=== PATIENT | male | born 1975 | race Caucasian/White ===

== ENCOUNTER 2018-02-28 02:16 | Observation (INO) | payer BC ==
[~2018-02-28] VITALS: Ht 190.5 cm; Wt 211.8 kg
[~2018-02-28 02:16] MED LIST: ACCUNEB SO1.25 MG/1 INH; ALPRAZOLAM 0.0.25 MG PO; AMLODIPINE BESY10 MG PO; CELEXA20 MG PO; CLEOCIN HCL150 MG PO; CLONIDINE0.1 PO; COZAAR 50 MG TA50 M2 PO; FLEXERIL PO; IBUPROFEN 800800 M1 PO; JARDIANCE25 MG PO; LISINOPRIL2.5 MG; METFORMIN HCL500 MG PO; METOPROLOL SUC100 MG PO; MOBIC15 MG PO; NORCO 5-325 TA1 EACH PO; OXYCODON-ACETA1 EAC1 PO; SIMETHICON CHEW80 M1 PO; XANAX 0.25 MG0.25 MG PO; [UNRECOGNIZED DRUG - OTHER] PO
[2018-02-28 02:19] VITALS: BP 178/104
[2018-02-28 02:39] LABS: ABSOLUTE BASOPHILS 0.1 thou/uL (0.0-0.2); ABSOLUTE EOSINOPHILS 0.2 thou/uL (0.0-0.7); ABSOLUTE LYMPHOCYTES 2.5 thou/uL (0.8-5.3); ABSOLUTE MONOCYTES 0.6 thou/uL (0.0-1.2); ABSOLUTE NEUTROPHILS 6.8 thou/uL (1.6-8.1); HEMATOCRIT 43.7 % (42.0-52.0); LYMPHOCYTES 24.5 %; MCH 26.8 pg (26.0-34.0); MCHC 34.2 g/dL (28.0-37.0); MCV 78.4 fL (80.0-100.0); MONOCYTES 5.6 %; MPV 8.9 fl. (7.2-11.1); NUCLEATED RBCS 0 /100WBC; PLATELET COUNT* 192 thou/uL (150-400); POLYS 66.9 %; RBC 5.57 mil/uL (4.50-6.00); RDW-CV 15.7 % (10.5-14.5); WBC 10.2 thou/uL (4.0-11.0)
[2018-02-28 02:51] LABS: ANION GAP 8 mmol/L (7-16); BUN 17 mg/dL (7-18); CALCIUM 8.8 mg/dL (8.5-10.1); CHLORIDE 100 mmol/L (98-107); CO2 30 mmol/L (21-32); CREATININE 0.9 mg/dL (0.6-1.3); GLUCOSE 130 mg/dL (70-99); SODIUM 138 mmol/L (136-145)
[2018-02-28 02:52] LABS: POTASSIUM 2.5 mmol/L (3.5-5.1)
[2018-02-28 02:53] LABS: INR 1.1; PROTIME 10.7 Seconds (9.20-11.50)
[2018-02-28 03:01] LABS: ALBUMIN 3.9 g/dL (3.4-5.0); ALKALINE PHOSPHATASE 77 U/L (46-116); NT-PRO BRAIN NAT PEPTIDE 30 pg/mL (<300); SGOT 21 U/L (15-37); SGPT 32 U/L (30-65); TOTAL BILIRUBIN 0.9 mg/dL (<0.1-1.0); TOTAL PROTEIN 7.9 g/dL (6.4-8.2); TROPONIN-I LEVEL <0.06 ng/mL (<0.06)
[2018-02-28 03:11] LABS: URINE BILIRUBIN NEGATIVE (Negative); URINE BLOOD NEGATIVE (Negative); URINE CLARITY CLEAR; URINE COLOR YELLOW; URINE GLUCOSE-RANDOM 3+ (Negative); URINE KETONES NEGATIVE (Negative); URINE LEUKOCYTES-REFLEX NEGATIVE (Negative); URINE NITRITE-REFLEX NEGATIVE (Negative); URINE PROTEIN NEGATIVE (Negative); URINE UROBILINOGEN 0.2 E.U./dl (0.2-1.0)
[2018-02-28 04:45] VITALS: BP 147/86
[2018-02-28] MEDS ORDERED: VENTOLIN HFA 1818 GM INH (05:51)
[2018-02-28] MEDS ORDERED: CELEXA20 MG PO (05:52)
[2018-02-28] MEDS ORDERED: ATORVASTATIN CA40 MG PO (05:55)
[2018-02-28 05:57] VITALS: BP 136/79
--- NOTE | 2018-02-28 06:30 | NUR ---
ADMITTED FROM ER, NO DISTRESS NOTED. DENIES SOB OR CP. TELEMETRY APPLIED SHOWING SR. SEE ADMISSION ASSESSMENT AND HX.
[2018-02-28 09:43] LABS: MAGNESIUM 2.3 mg/dL (1.8-2.4); POTASSIUM 3.1 mmol/L (3.5-5.1); TROPONIN-I LEVEL <0.06 ng/mL (<0.06)
[2018-02-28] MEDS ORDERED: ASPIR 8181 MG PO (09:55)
[2018-02-28 11:22] VITALS: BP 136/79
--- NOTE | 2018-02-28 12:28 | NUR ---
ASSESSMENT COMPLETED REFER TO COMPUTER CHARTING. THERAPEUTIC RECREATION SPECIALIST TRACKING SR. PATIENT REPORTING NO PAIN OR NAUSEA. PATIENT REPORTING SHORTNESS OF AIR AND REQUESTING A BREATHING TREATMENT. PATIENT REPORTING CHRONIC SHORTNESS OF AIR. BED IN LOW AND LOCKED POSITION. CALL LIGHT WITHIN REACH. IV SALINE LOCKED. PATIENT ON ROOM AIR. DISCHARGE ORDERS RECIEVED. REPLACING POTASSIUM PRIOR TO DISCHARGE. WILL CONTINUE TO MONITOR THIS SHIFT.
--- NOTE | 2018-02-28 12:50 | EKG ---
[place] [address] ELECTROCARDIOGRAM REPORT Name: WENDY TARANGO Room: [address] M.R.#: [id number] Admission: 02/28/18 Attend Phys: Nagi Jamil MD Discharge: Date of : 75 Report #: [id number] THIS REPORT FOR: //name// [facility] ED Test Date: 2018-02-28 Test Time: 02:22:06 Pat Name: WENDY CHARLESPOOL Department: Room: Gender: M Fish Flipper: : 1975 Requested By: Chloe Erickson Order Number: [id number] MD: Kendrick Nunez Measurements Intervals [place] Rate: 88 P: 36 PA: 168 QRS: -6 QRSD: 129 T: 62 QT: 398 QTc: 482 Interpretive Statements Sinus rhythm Nonspecific intraventricular conduction delay Minimal ST depression, lateral leads Compared to ECG 10/29/2014 19:41:52 Intraventricular conduction delay now present ST (T wave) deviation now present Electronically Signed On 02-28-2018 12:50:15 CDT by Kendrick Nunez [email or web address] <ELECTRONICALLY SIGNED> By: Kendrick Nunez MD, [facility] 02/28/18 1250 1 022 Kendrick Nunez MD, [facility] /EPI
[2018-02-28] MEDS ORDERED: XANAX 0.5 MG0.5 MG PO (14:43)
== END 2018-02-28 14:55 | disposition home or self-care (01) ==
LOC: M.ERS 02:16 → M.TBA-ER 03:54 → M.2W 03:54
PROVIDERS: Emergency Medicine; ADMIT Internal Medicine
DX: F41.0 Panic disorder [episodic paroxysmal anxiety] (principal); E87.6 Hypokalemia; E11.9 Type 2 diabetes mellitus without complications; I10 Essential (primary) hypertension; J45.909 Unspecified asthma, uncomplicated; F41.9 Anxiety disorder, unspecified; E66.01 Morbid (severe) obesity due to excess calories; K21.9 Gastro-esophageal reflux disease without esophagitis; Z98.890 Other specified postprocedural states; Z72.89 Other problems related to lifestyle

== ENCOUNTER 2018-08-16 08:40 | Emergency (ER) | payer BC ==
[~2018-08-16] VITALS: Ht 190.5 cm; Wt 208.7 kg
[~2018-08-16 08:40] MED LIST changes: +ASPIR 8181 MG PO; +ATORVASTATIN CA40 MG PO; +VENTOLIN HFA 1818 GM INH; +XANAX 0.5 MG0.5 MG PO
[2018-08-16 09:30] LABS: ABSOLUTE BASOPHILS 0.1 thou/uL (0.0-0.2); ABSOLUTE EOSINOPHILS 0.2 thou/uL (0.0-0.7); ABSOLUTE LYMPHOCYTES 1.8 thou/uL (0.8-5.3); ABSOLUTE MONOCYTES 0.6 thou/uL (0.0-1.2); ABSOLUTE NEUTROPHILS 5.4 thou/uL (1.6-8.1); BASOPHILS 0.8 %; EOSINOPHILS 2.6 %; HEMATOCRIT 44.1 % (42.0-52.0); HEMOGLOBIN 15.2 gm/dL (14.0-18.0); MCH 27.8 pg (26.0-34.0); MCHC 34.3 g/dL (28.0-37.0); MONOCYTES 7.3 %; NUCLEATED RBCS 0 /100WBC; PLATELET COUNT* 201 thou/uL (150-400); POLYS 67.3 %; RBC 5.45 mil/uL (4.50-6.00); WBC 8.1 thou/uL (4.0-11.0)
[2018-08-16 09:39] LABS: ANION GAP 6 mmol/L (7-16); APTT 29.4 Seconds (25.0-31.3); BUN 14 mg/dL (7-18); CALCIUM 9.1 mg/dL (8.5-10.1); CHLORIDE 99 mmol/L (98-107); CO2 31 mmol/L (21-32); GLUCOSE 106 mg/dL (70-99); INR 1.1; POTASSIUM 3.4 mmol/L (3.5-5.1); PROTIME 10.8 Seconds (9.20-11.50); SODIUM 136 mmol/L (136-145)
[2018-08-16 09:58] LABS: ALBUMIN 3.8 g/dL (3.4-5.0); ALKALINE PHOSPHATASE 82 U/L (46-116); CK-MB MASS 1.7 ng/mL (<0.5-3.6); LIPASE 80 U/L (73-393); MAGNESIUM 1.8 mg/dL (1.8-2.4); NT-PRO BRAIN NAT PEPTIDE 15 pg/mL (<300); SGOT 24 U/L (15-37); SGPT 30 U/L (30-65); TOTAL BILIRUBIN 0.7 mg/dL (<0.1-1.0); TOTAL PROTEIN 7.9 g/dL (6.4-8.2); TROPONIN-I LEVEL <0.06 ng/mL (<0.06)
[2018-08-16 10:06] VITALS: BP 140/79
--- NOTE | 2018-08-17 12:25 | EKG ---
[place] [address] ELECTROCARDIOGRAM REPORT Name: WENDY TARANGO [id number] Admission: 08/16/18 Attend Phys: Discharge: 08/16/18 Date of : 75 Report #: [id number] THIS REPORT FOR: //name// [facility] ED Test Date: 2018-08-16 Test Time: 08:58:31 Pat Name: WENDY EMELINA Department: Room: Gender: M Wireless Network Engineer: Joselito JOHNSON : 1975 Requested By: Dale Velazquez Order Number: [id number] MD: Wendy Morrison Measurements Intervals [place] Rate: 69 P: 61 ME: 163 QRS: 7 QRSD: 128 T: 27 QT: 439 QTc: 471 Interpretive Statements Sinus rhythm Nonspecific intraventricular conduction delay Compared to ECG 02/28/2018 02:22:06 ST (T wave) deviation no longer present Electronically Signed On 08-17-2018 12:25:02 TELEVISION SPECIALIST by Wendy Morrison [email or web address] <ELECTRONICALLY SIGNED> By: Wendy Morrison MD, [facility] 08/17/18 1225 7 Wendy Morrison MD, [facility] /EPI
== END 2018-08-16 10:09 | disposition home or self-care (01) ==
LOC: M.ERS 08:40
PROVIDERS: Family Medicine
DX: I10 Essential (primary) hypertension (principal); J45.909 Unspecified asthma, uncomplicated; K21.9 Gastro-esophageal reflux disease without esophagitis; F41.9 Anxiety disorder, unspecified; E11.9 Type 2 diabetes mellitus without complications

== ENCOUNTER 2019-01-31 03:51 | Emergency (ER) | payer BC ==
[~2019-01-31] VITALS: Ht 190.5 cm; Wt 210.9 kg
[2019-01-31] MEDS ORDERED: PREDNISONE50 MG PO (04:02)
[2019-01-31] MEDS ORDERED: VENTOLIN HFA 1818 GM INH (04:02)
[2019-01-31] MEDS ORDERED: ZPAK PO (04:02)
[2019-01-31 04:51] VITALS: BP 167/90
== END 2019-01-31 04:55 | disposition home or self-care (01) ==
LOC: M.ERS 03:51
DX: J06.9 Acute upper respiratory infection, unspecified (principal); I10 Essential (primary) hypertension; J45.909 Unspecified asthma, uncomplicated; K21.9 Gastro-esophageal reflux disease without esophagitis; F41.9 Anxiety disorder, unspecified; E11.9 Type 2 diabetes mellitus without complications

== ENCOUNTER 2019-05-21 10:56 | Emergency (ER) | payer OTHER ==
[~2019-05-21] VITALS: Ht 190.5 cm; Wt 214.1 kg
[~2019-05-21 10:56] MED LIST changes: +PREDNISONE50 MG PO; +ZPAK PO
[2019-05-21 11:01] VITALS: BP 135/114
[2019-05-21] MEDS ORDERED: MAGIC MOUTHWASH SWISH&SPIT (11:25)
== END 2019-05-21 11:32 | disposition home or self-care (01) ==
LOC: M.ERS 10:56
DX: K12.1 Other forms of stomatitis (principal); I10 Essential (primary) hypertension; J45.909 Unspecified asthma, uncomplicated; K21.9 Gastro-esophageal reflux disease without esophagitis; F41.9 Anxiety disorder, unspecified; E11.9 Type 2 diabetes mellitus without complications

== ENCOUNTER 2019-07-10 17:01 | Emergency (ER) | payer OTHER ==
[~2019-07-10] VITALS: Ht 190.5 cm; Wt 210.9 kg
[~2019-07-10 17:01] MED LIST changes: +MAGIC MOUTHWASH SWISH&SPIT
[2019-07-10 18:25] LABS: ABSOLUTE BASOPHILS 0.1 thou/uL (0.0-0.2); ABSOLUTE EOSINOPHILS 0.2 thou/uL (0.0-0.7); ABSOLUTE LYMPHOCYTES 1.3 thou/uL (0.8-5.3); ABSOLUTE MONOCYTES 0.5 thou/uL (0.0-1.2); ABSOLUTE NEUTROPHILS 6.1 thou/uL (1.6-8.1); BASOPHILS 0.7 %; EOSINOPHILS 2.7 %; HEMATOCRIT 41.2 % (42.0-52.0); HEMOGLOBIN 14.5 gm/dL (14.0-18.0); LYMPHOCYTES 16.4 %; MCH 28.2 pg (26.0-34.0); MCHC 35.3 g/dL (28.0-37.0); MCV 79.9 fL (80.0-100.0); MONOCYTES 5.9 %; MPV 8.7 fl. (7.2-11.1); NUCLEATED RBCS 0 /100WBC; PLATELET COUNT* 204 thou/uL (150-400); POLYS 74.3 %; RBC 5.15 mil/uL (4.50-6.00); RDW-CV 14.9 % (10.5-14.5); WBC 8.2 thou/uL (4.0-11.0)
[2019-07-10 18:35] LABS: CREATININE 0.9 mg/dL (0.6-1.3); POTASSIUM 3.5 mmol/L (3.5-5.1)
[2019-07-10 18:40] LABS: ALBUMIN 3.4 g/dL (3.4-5.0); TOTAL BILIRUBIN 0.6 mg/dL (<0.1-1.0); TOTAL PROTEIN 7.2 g/dL (6.4-8.2)
[2019-07-10 19:00] LABS: URINE BILIRUBIN NEGATIVE (Negative); URINE BLOOD NEGATIVE (Negative); URINE CLARITY CLEAR; URINE COLOR YELLOW; URINE GLUCOSE-RANDOM NEGATIVE (Negative); URINE KETONES NEGATIVE (Negative); URINE LEUKOCYTES-REFLEX NEGATIVE (Negative); URINE NITRITE-REFLEX NEGATIVE (Negative); URINE PROTEIN NEGATIVE (Negative); URINE UROBILINOGEN 0.2 E.U./dl (0.2-1.0)
[2019-07-10 19:07] LABS: AMP/METHAMP Negative (Negative); BARBITURATES Negative (Negative); BENZODIAZEPINES Negative (Negative); COCAINE Negative (Negative); METHADONE Negative (Negative); OPIATES Negative (Negative); PCP Negative (Negative); THC Negative (Negative)
[2019-07-10] MEDS ORDERED: ASA81BEC PO ×2 (20:17→20:21)
[2019-07-10 20:43] VITALS: BP 133/80
--- NOTE | 2019-07-11 14:33 | EKG ---
[place] [address] ELECTROCARDIOGRAM REPORT Name: WENDY TARANGO [id number] Admission: 07/10/19 Attend Phys: Discharge: 07/10/19 Date of : 75 Report #: [id number] THIS REPORT FOR: //name// [facility] ED Test Date: 2019-07-10 Test Time: 17:17:07 Pat Name: WENDY TARANGO Department: Room: Gender: M Gate Keeper: JENNIFER : 1975 Requested By: Duke Ghosh Order Number: [id number] MD: Jacob Britton Measurements Intervals [place] Rate: 66 P: 42 NV: 157 QRS: 10 QRSD: 121 T: 28 QT: 426 QTc: 447 Interpretive Statements Sinus rhythm Compared to ECG 08/16/2018 08:58:31 No significant changes Electronically Signed On 07-11-2019 14:33:03 RESIDENT CARE AID by Jacob Britton [email or web address] <ELECTRONICALLY SIGNED> By: Jacob Britton MD, [facility] 07/11/19 1433 1717 1717 Jacob Britton MD, FACC /EPI
== END 2019-07-10 20:45 | disposition home or self-care (01) ==
LOC: M.ERS 17:01
PROVIDERS: Physician Assistant
DX: R07.89 Other chest pain (principal); I10 Essential (primary) hypertension; K21.9 Gastro-esophageal reflux disease without esophagitis; J45.909 Unspecified asthma, uncomplicated; E11.9 Type 2 diabetes mellitus without complications; Z79.899 Other long term (current) drug therapy

== ENCOUNTER 2019-11-20 20:15 | Emergency (ER) | payer OTHER ==
[~2019-11-20] VITALS: Ht 190.5 cm; Wt 205.9 kg
[~2019-11-20 20:15] MED LIST changes: +ASA81BEC PO
[2019-11-20 20:54] LABS: ABSOLUTE BASOPHILS 0.1 thou/uL (0.0-0.2); ABSOLUTE EOSINOPHILS 0.2 thou/uL (0.0-0.7); ABSOLUTE LYMPHOCYTES 1.6 thou/uL (0.8-5.3); ABSOLUTE MONOCYTES 0.6 thou/uL (0.0-1.2); ABSOLUTE NEUTROPHILS 6.9 thou/uL (1.6-8.1); BASOPHILS 1.1 %; EOSINOPHILS 2.4 %; HEMATOCRIT 41.8 % (42.0-52.0); HEMOGLOBIN 14.5 gm/dL (14.0-18.0); LYMPHOCYTES 16.5 %; MCH 27.5 pg (26.0-34.0); MCHC 34.8 g/dL (28.0-37.0); MCV 79.1 fL (80.0-100.0); MONOCYTES 6.5 %; MPV 9.1 fl. (7.2-11.1); NUCLEATED RBCS 0 /100WBC; PLATELET COUNT* 238 thou/uL (150-400); POLYS 73.5 %; RBC 5.28 mil/uL (4.50-6.00); RDW-CV 14.3 % (10.5-14.5); WBC 9.4 thou/uL (4.0-11.0)
[2019-11-20 21:02] LABS: CALCIUM 8.7 mg/dL (8.5-10.1); CREATININE 0.9 mg/dL (0.6-1.3); INR 1.1; POTASSIUM 3.2 mmol/L (3.5-5.1); PROTIME 11.1 Seconds (9.20-11.50)
[2019-11-20 21:07] LABS: ALBUMIN 3.7 g/dL (3.4-5.0); TOTAL BILIRUBIN 0.5 mg/dL (<0.1-1.0)
[2019-11-20 22:22] VITALS: BP 167/101
--- NOTE | 2019-11-21 16:31 | EKG ---
[place] [address] ELECTROCARDIOGRAM REPORT Name: WENDY TARANGO Room: [facility]#: [id number] Admission: 11/20/19 Attend Phys: Discharge: 11/20/19 Date of : 75 Date of Service: 11/20/192023 Report #: [id number] THIS REPORT FOR: //name// [facility] ED Test Date: 2019-11-20 Test Time: 20:24:44 Pat Name: WENDY TARANGO Department: Room: Gender: Tie Man: : 1975 Requested By: Carito Francisco Order Number: [id number] MD: Jacob Britton Measurements Intervals [place] Rate: 76 P: 44 PA: 164 QRS: 11 QRSD: 129 T: 38 QT: 421 QTc: 474 Interpretive Statements Sinus rhythm Nonspecific T-wave flattening Compared to ECG 07/10/2019 17:17:07 Intraventricular conduction delay now present Electronically Signed On 11-21-2019 16:30:43 CDT by Jacob Britton [email or web address] <ELECTRONICALLY SIGNED> By: Jacob Britton MD, FAC 11/21/19 1630 23 23 Jacob Britton MD, [facility] /EPI
== END 2019-11-20 22:22 | disposition home or self-care (01) ==
LOC: M.ERS 20:15
PROVIDERS: Personal Emergency Response Attendant
DX: R42 Dizziness and giddiness (principal); I10 Essential (primary) hypertension; E11.9 Type 2 diabetes mellitus without complications; K21.9 Gastro-esophageal reflux disease without esophagitis; J45.909 Unspecified asthma, uncomplicated; F41.9 Anxiety disorder, unspecified

== ENCOUNTER 2020-01-16 23:09 | Emergency (ER) | payer OTHER ==
[~2020-01-16] VITALS: Ht 190.5 cm; Wt 195.1 kg
[2020-01-16] MEDS ORDERED: JARDIANCE10 MG PO (23:21)
[2020-01-16] MEDS ORDERED: HYDROCODON-ACE1 EAC8 PO (23:25)
[2020-01-16] MEDS ORDERED: FLEXERIL PO ×2 (23:25→23:29)
[2020-01-16 23:43] VITALS: BP 135/70
== END 2020-01-16 23:46 | disposition home or self-care (01) ==
LOC: M.ERS 23:09
DX: M54.5 Low back pain (principal); I10 Essential (primary) hypertension; J45.909 Unspecified asthma, uncomplicated; K21.9 Gastro-esophageal reflux disease without esophagitis; E11.9 Type 2 diabetes mellitus without complications

== ENCOUNTER 2020-03-27 21:08 | Emergency (ER) | payer OTHER ==
[~2020-03-27] VITALS: Ht 190.5 cm; Wt 213.2 kg
[~2020-03-27 21:08] MED LIST changes: +HYDROCODON-ACE1 EAC8 PO; +JARDIANCE10 MG PO
[2020-03-27 22:22] VITALS: BP 145/92
== END 2020-03-27 22:22 | disposition home or self-care (01) ==
LOC: M.ERS 21:08
DX: R04.0 Epistaxis (principal); I10 Essential (primary) hypertension; E11.9 Type 2 diabetes mellitus without complications; J45.909 Unspecified asthma, uncomplicated; K21.9 Gastro-esophageal reflux disease without esophagitis; F41.9 Anxiety disorder, unspecified

== ENCOUNTER 2020-03-30 21:46 | Emergency (ER) | payer OTHER ==
[~2020-03-30] VITALS: Ht 190.5 cm; Wt 213.2 kg
[2020-03-31 00:06] VITALS: BP 172/98
[2020-03-31] MEDS ORDERED: HYDROCHLOROTH12.5 M1 PO (10:29)
== END 2020-03-31 00:06 | disposition home or self-care (01) ==
LOC: M.ERS 21:46
DX: I16.0 Hypertensive urgency (principal); R04.0 Epistaxis; I10 Essential (primary) hypertension; E11.9 Type 2 diabetes mellitus without complications; K21.9 Gastro-esophageal reflux disease without esophagitis; J45.909 Unspecified asthma, uncomplicated; F41.9 Anxiety disorder, unspecified

== ENCOUNTER 2020-03-31 10:16 | Emergency (ER) | payer OTHER ==
[~2020-03-31] VITALS: Ht 190.5 cm; Wt 213.2 kg
[2020-03-31] MEDS ORDERED: HYDROCHLOROTH12.5 M1 PO (10:29)
[2020-03-31 11:02] LABS: ABSOLUTE BASOPHILS 0.1 thou/uL (0.0-0.2); ABSOLUTE EOSINOPHILS 0.2 thou/uL (0.0-0.7); ABSOLUTE LYMPHOCYTES 1.4 thou/uL (0.8-5.3); ABSOLUTE MONOCYTES 0.5 thou/uL (0.0-1.2); ABSOLUTE NEUTROPHILS 5.6 thou/uL (1.6-8.1); BASOPHILS 0.8 %; EOSINOPHILS 2.6 %; HEMATOCRIT 41.7 % (42.0-52.0); HEMOGLOBIN 14.3 gm/dL (14.0-18.0); LYMPHOCYTES 17.9 %; MCH 27.2 pg (26.0-34.0); MCHC 34.3 g/dL (28.0-37.0); MCV 79.3 fL (80.0-100.0); MONOCYTES 6.7 %; MPV 8.8 fl. (7.2-11.1); NUCLEATED RBCS 0 /100WBC; PLATELET COUNT* 207 thou/uL (150-400); RBC 5.26 mil/uL (4.50-6.00); RDW-CV 14.8 % (10.5-14.5); WBC 7.8 thou/uL (4.0-11.0)
[2020-03-31 11:12] LABS: CALCIUM 8.9 mg/dL (8.5-10.1); POTASSIUM 3.7 mmol/L (3.5-5.1)
[2020-03-31 11:42] VITALS: BP 184/97
== END 2020-03-31 11:43 | disposition home or self-care (01) ==
LOC: M.ERS 10:16
PROVIDERS: Emergency Medicine Emergency Medical Services
DX: I10 Essential (primary) hypertension (principal); R04.0 Epistaxis; E11.9 Type 2 diabetes mellitus without complications; J45.909 Unspecified asthma, uncomplicated; K21.9 Gastro-esophageal reflux disease without esophagitis; F41.9 Anxiety disorder, unspecified

== ENCOUNTER 2020-04-02 22:07 | Emergency (ER) | payer OTHER ==
[~2020-04-02] VITALS: Ht 190.5 cm; Wt 213.2 kg
[~2020-04-02 22:07] MED LIST changes: +HYDROCHLOROTH12.5 M1 PO
[2020-04-02] MEDS ORDERED: CHLORTHALIDONE25 MG PO (22:20)
[2020-04-02] MEDS ORDERED: SINGULAIR 10 MG10 MG PO (22:22)
[2020-04-02] MEDS ORDERED: VENTOLIN HFA 1818 GM INH (23:18)
[2020-04-02 23:30] VITALS: BP 161/94
== END 2020-04-02 23:30 | disposition home or self-care (01) ==
LOC: M.ERS 22:07
DX: I10 Essential (primary) hypertension (principal); R04.0 Epistaxis; E66.9 Obesity, unspecified; E11.9 Type 2 diabetes mellitus without complications; K21.9 Gastro-esophageal reflux disease without esophagitis; J45.909 Unspecified asthma, uncomplicated; F41.9 Anxiety disorder, unspecified; Z68.43 Body mass index [BMI] 50.0-59.9, adult

== ENCOUNTER 2020-04-10 08:40 | Emergency (ER) | payer OTHER ==
[~2020-04-10] VITALS: Ht 190.5 cm; Wt 213.2 kg
[~2020-04-10 08:40] MED LIST changes: +CHLORTHALIDONE25 MG PO; +SINGULAIR 10 MG10 MG PO
[2020-04-10 08:47] VITALS: BP 188/110
== END 2020-04-10 10:24 | disposition home or self-care (01) ==
LOC: M.ERS 08:40
DX: R04.0 Epistaxis (principal); I10 Essential (primary) hypertension; E11.9 Type 2 diabetes mellitus without complications; J45.909 Unspecified asthma, uncomplicated; K21.9 Gastro-esophageal reflux disease without esophagitis; F41.9 Anxiety disorder, unspecified

== ENCOUNTER 2020-04-12 00:09 | Emergency (ER) | payer OTHER ==
[~2020-04-12] VITALS: Ht 190.5 cm; Wt 213.2 kg
[2020-04-12 00:58] VITALS: BP 178/115
== END 2020-04-12 02:48 | disposition home or self-care (01) ==
LOC: M.ERS 00:09
DX: R04.0 Epistaxis (principal); I10 Essential (primary) hypertension; K21.9 Gastro-esophageal reflux disease without esophagitis; J45.909 Unspecified asthma, uncomplicated; E11.9 Type 2 diabetes mellitus without complications

== ENCOUNTER 2020-06-02 14:20 | Emergency (ER) | payer OTHER ==
[~2020-06-02] VITALS: Ht 190.5 cm; Wt 213.2 kg
[2020-06-02] MEDS ORDERED: FLEXERIL PO (15:02)
[2020-06-02] MEDS ORDERED: NAPROSYN500 MG PO (15:02)
[2020-06-02 15:27] VITALS: BP 139/102
== END 2020-06-02 15:28 | disposition home or self-care (01) ==
LOC: M.ERS 14:20
DX: M54.5 Low back pain (principal); I10 Essential (primary) hypertension; J45.909 Unspecified asthma, uncomplicated; K21.9 Gastro-esophageal reflux disease without esophagitis; E11.9 Type 2 diabetes mellitus without complications; F17.210 Nicotine dependence, cigarettes, uncomplicated

== ENCOUNTER 2020-07-09 07:42 | Emergency (ER) | payer OTHER ==
[~2020-07-09] VITALS: Ht 190.5 cm; Wt 210.5 kg
[~2020-07-09 07:42] MED LIST changes: +NAPROSYN500 MG PO
[2020-07-09] MEDS ORDERED: VENTOLIN HFA 1818 GM INH (08:44)
[2020-07-09] MEDS ORDERED: PREDNISONE 20 M20 M1 PO ×2 (08:44→08:46)
[2020-07-09] MEDS ORDERED: ALBUTEROL2.5 MG/3 M NEB (08:44)
[2020-07-09 09:01] VITALS: BP 166/98
== END 2020-07-09 09:03 | disposition home or self-care (01) ==
LOC: M.ERS 07:42
DX: J45.901 Unspecified asthma with (acute) exacerbation (principal); Z20.828 Contact with and (suspected) exposure to other viral communicable diseases; I10 Essential (primary) hypertension; K21.9 Gastro-esophageal reflux disease without esophagitis; E11.9 Type 2 diabetes mellitus without complications

== ENCOUNTER 2020-07-18 13:50 | Emergency (ER) | payer OTHER ==
[~2020-07-18] VITALS: Ht 190.5 cm; Wt 213.2 kg
[~2020-07-18 13:50] MED LIST changes: +ALBUTEROL2.5 MG/3 M NEB; +PREDNISONE 20 M20 M1 PO
[2020-07-18 14:15] LABS: ABSOLUTE BASOPHILS 0.1 thou/uL (0.0-0.2); ABSOLUTE EOSINOPHILS 0.2 thou/uL (0.0-0.7); ABSOLUTE LYMPHOCYTES 1.5 thou/uL (0.8-5.3); ABSOLUTE MONOCYTES 0.4 thou/uL (0.0-1.2); ABSOLUTE NEUTROPHILS 6.2 thou/uL (1.6-8.1); BASOPHILS 1.3 %; EOSINOPHILS 2.1 %; HEMATOCRIT 44.1 % (42.0-52.0); HEMOGLOBIN 14.7 gm/dL (14.0-18.0); MCH 26.1 pg (26.0-34.0); MCHC 33.4 g/dL (28.0-37.0); MCV 78.3 fL (80.0-100.0); MONOCYTES 4.8 %; MPV 8.3 fl. (7.2-11.1); NUCLEATED RBCS 0 /100WBC; PLATELET COUNT* 212 thou/uL (150-400); POLYS 73.8 %; RBC 5.64 mil/uL (4.50-6.00); RDW-CV 15.9 % (10.5-14.5); WBC 8.5 thou/uL (4.0-11.0)
[2020-07-18 14:23] LABS: CALCIUM 8.8 mg/dL (8.5-10.1); CREATININE 0.8 mg/dL (0.6-1.3)
[2020-07-18 14:24] LABS: APTT 24.2 Seconds (25.0-31.3); PROTIME 10.8 Seconds (9.20-11.50)
[2020-07-18 14:36] LABS: ALBUMIN 3.4 g/dL (3.4-5.0); CK-MB MASS 1.4 ng/mL (<0.5-3.6); MAGNESIUM 1.7 mg/dL (1.8-2.4); TOTAL BILIRUBIN 0.5 mg/dL (<0.1-1.0); TOTAL PROTEIN 8.1 g/dL (6.4-8.2)
--- NOTE | 2020-07-18 16:15 | EKG ---
[place] [address] ELECTROCARDIOGRAM REPORT Name: WENDY TARANGO Room: [facility]#: [id number] Admission: 07/18/20 Attend Phys: Discharge: Date of : 75 Date of Service: 07/18/20 1357 Report #: [id number] THIS REPORT FOR: //name// [facility] ED Test Date: 2020-07-18 Test Time: 13:57:01 Pat Name: WENDY EMELINA Department: Room: Gender: Enterprise Manager: [facility] : 1975 Requested By: Dale Velazquez Order Number: [id number] MD: Bassem Craig Measurements Intervals [place] Rate: 73 P: 47 SC: 162 QRS: -8 QRSD: 112 T: -18 QT: 392 QTc: 432 Interpretive Statements Sinus rhythm Borderline intraventricular conduction delay Borderline T abnormalities, inferior leads Baseline wander in lead(s) III,V3,V4,V5,V6 Compared to ECG 11/20/2019 20:24:44 No significant changes Electronically Signed On 07-18-2020 16:15:44 DIRECTOR OF NURSES REGISTRY by Bassem Craig [email or web address] <ELECTRONICALLY SIGNED> By: Bassem Craig MD, FACC 07/18/20 1615 1357 1357 Bassem Craig MD, [facility] /EPI
[2020-07-18 17:04] VITALS: BP 162/98
== END 2020-07-18 17:05 | disposition home or self-care (01) ==
LOC: M.ERS 13:50
PROVIDERS: Family Medicine
DX: R07.89 Other chest pain (principal); R11.2 Nausea with vomiting, unspecified; Z20.828 Contact with and (suspected) exposure to other viral communicable diseases; I10 Essential (primary) hypertension; J45.909 Unspecified asthma, uncomplicated; K21.9 Gastro-esophageal reflux disease without esophagitis; E11.9 Type 2 diabetes mellitus without complications

== ENCOUNTER 2020-08-06 09:06 | Emergency (ER) | payer OTHER ==
[~2020-08-06] VITALS: Ht 190.5 cm; Wt 213.2 kg
[2020-08-06 10:06] VITALS: BP 178/86
== END 2020-08-06 10:08 | disposition home or self-care (01) ==
LOC: M.ERS 09:06
DX: Z20.828 Contact with and (suspected) exposure to other viral communicable diseases (principal); I10 Essential (primary) hypertension; J45.909 Unspecified asthma, uncomplicated; K21.9 Gastro-esophageal reflux disease without esophagitis; E11.9 Type 2 diabetes mellitus without complications

== ENCOUNTER 2020-08-15 21:04 | Inpatient (IN) | payer OTHER ==
[~2020-08-15] VITALS: Ht 190.5 cm; Wt 213.2 kg
[2020-08-15 21:13] VITALS: BP 110/63
[2020-08-15 22:47] LABS: CREATININE 1.6 mg/dL (0.6-1.3)
[2020-08-15 22:52] LABS: ALBUMIN 3.7 g/dL (3.4-5.0); TOTAL BILIRUBIN 0.6 mg/dL (<0.1-1.0); TOTAL PROTEIN 8.3 g/dL (6.4-8.2)
[2020-08-15 23:01] LABS: ABSOLUTE LYMPHOCYTES 0.4 thou/uL (0.8-5.3); ABSOLUTE MONOCYTES 0.3 thou/uL (0.0-1.2); ABSOLUTE NEUTROPHILS 2.1 thou/uL (1.6-8.1); BASOPHILS 0.5 %; HEMATOCRIT 27.6 % (42.0-52.0); LYMPHOCYTES 15.7 %; MCH 26.2 pg (26.0-34.0); MCHC 32.6 g/dL (28.0-37.0); MCV 80.4 fL (80.0-100.0); MONOCYTES 10.1 %; MPV 9.2 fl. (7.2-11.1); NUCLEATED RBCS 0 /100WBC; PLATELET COUNT* 98 thou/uL (150-400); POLYS 73.7 %; RBC 3.43 mil/uL (4.50-6.00); RDW-CV 15.1 % (10.5-14.5); WBC 2.8 thou/uL (4.0-11.0)
[2020-08-15 23:38] LABS: URINE BILIRUBIN NEGATIVE (Negative); URINE BLOOD NEGATIVE (Negative); URINE CLARITY CLEAR; URINE COLOR YELLOW; URINE GLUCOSE-RANDOM 3+ (Negative); URINE KETONES NEGATIVE (Negative); URINE LEUKOCYTES-REFLEX NEGATIVE (Negative); URINE NITRITE-REFLEX NEGATIVE (Negative); URINE PROTEIN NEGATIVE (Negative); URINE UROBILINOGEN 0.2 E.U./dl (0.2-1.0)
[2020-08-15 23:43] LABS: AMP/METHAMP Negative (Negative); BARBITURATES Negative (Negative); BENZODIAZEPINES Negative (Negative); COCAINE Negative (Negative); METHADONE Negative (Negative); OPIATES Negative (Negative); PCP Negative (Negative); THC Negative (Negative)
[2020-08-16 01:30] VITALS: BP 128/77
[2020-08-16 02:00] VITALS: BP 103/67
[2020-08-16 04:00] VITALS: BP 120/61
[2020-08-16 05:56] LABS: MAGNESIUM 1.9 mg/dL (1.8-2.4); POTASSIUM 3.3 mmol/L (3.5-5.1)
[2020-08-16 09:33] VITALS: BP 132/83
[2020-08-16 10:35] LABS: ALBUMIN 3.3 g/dL (3.4-5.0); CALCIUM 8.4 mg/dL (8.5-10.1); TOTAL BILIRUBIN 0.8 mg/dL (<0.1-1.0); TOTAL PROTEIN 7.7 g/dL (6.4-8.2)
[2020-08-16 11:31] LABS: ABSOLUTE LYMPHOCYTES 1.3 thou/uL (0.8-5.3); ABSOLUTE MONOCYTES 0.5 thou/uL (0.0-1.2); ABSOLUTE NEUTROPHILS 3.9 thou/uL (1.6-8.1); BASOPHILS 0.8 %; EOSINOPHILS 0.2 %; HEMATOCRIT 46.1 % (42.0-52.0); LYMPHOCYTES 22.8 %; MCH 26.3 pg (26.0-34.0); MCHC 33.7 g/dL (28.0-37.0); MCV 78.1 fL (80.0-100.0); MONOCYTES 8.7 %; NUCLEATED RBCS 0 /100WBC; POLYS 67.5 %; RDW-CV 15.8 % (10.5-14.5); WBC 5.8 thou/uL (4.0-11.0)
[2020-08-16 11:35] LABS: HEMOGLOBIN 15.5 gm/dL (14.0-18.0); PLATELET COUNT* 185 thou/uL (150-400)
[2020-08-16 16:52] VITALS: BP 123/71
--- NOTE | 2020-08-16 17:09 | EKG ---
[place] [address] ELECTROCARDIOGRAM REPORT Name: WENDY TARANGO Room: [address] ADM IN M.R.#: [id number] Admission: 08/16/20 Attend Phys: Nagi Jamil, Discharge: Date of : 75 Date of Service: 08/16/20 0045 Report #: [id number] THIS REPORT FOR: //name// [facility] ED Test Date: 2020-08-16 Test Time: 00:45:14 Pat Name: WENDY TARANGO Department: Room: [address] Gender: M Director Of Revenue: ULYSSES : 1975 Requested By: Carito Francisco Order Number: [id number] Brynn MD: Wendy Morrison Measurements Intervals [place] Rate: 72 P: 43 MT: 153 QRS: 7 QRSD: 124 T: 97 QT: 493 QTc: 540 Interpretive Statements Sinus rhythm Nonspecific intraventricular conduction delay Nonspecific T abnrm, anterolateral leads Compared to ECG 07/18/2020 13:57:01 no change Electronically Signed On 08-16-2020 17:09:18 MATHEMATICIAN RESEARCH by Wendy Morrison [email or web address] <ELECTRONICALLY SIGNED> By: Wendy Morrison MD, FAC 08/16/20 1709 0045 0045 Wendy Morrison MD, [facility] /EPI
[2020-08-16 20:00] VITALS: BP 126/79
[2020-08-16 21:14] LABS: ABSOLUTE LYMPHOCYTES 0.5 thou/uL (0.8-5.3); ABSOLUTE MONOCYTES 0.2 thou/uL (0.0-1.2); ABSOLUTE NEUTROPHILS 2.9 thou/uL (1.6-8.1); BASOPHILS 0.4 %; EOSINOPHILS 0.1 %; HEMATOCRIT 42.9 % (42.0-52.0); HEMOGLOBIN 14.5 gm/dL (14.0-18.0); LYMPHOCYTES 13.2 %; MCH 26.1 pg (26.0-34.0); MCHC 33.7 g/dL (28.0-37.0); MCV 77.6 fL (80.0-100.0); MONOCYTES 5.7 %; MPV 8.9 fl. (7.2-11.1); NUCLEATED RBCS 0 /100WBC; PLATELET COUNT* 143 thou/uL (150-400); POLYS 80.6 %; RBC 5.53 mil/uL (4.50-6.00); RDW-CV 15.8 % (10.5-14.5); WBC 3.6 thou/uL (4.0-11.0)
[2020-08-16 21:23] LABS: POTASSIUM 3.4 mmol/L (3.5-5.1)
[2020-08-16 21:25] LABS: INR 1.1; PROTIME 11.5 Seconds (9.20-11.50)
[2020-08-16 21:28] LABS: ALBUMIN 3.2 g/dL (3.4-5.0); TOTAL BILIRUBIN 0.9 mg/dL (<0.1-1.0); TOTAL PROTEIN 7.6 g/dL (6.4-8.2)
[2020-08-17] VITALS: BP 116/53
[2020-08-17 02:07] LABS: HEPATITIS B SURFACE AG Negative (Negative)
[2020-08-17 05:22] LABS: ABSOLUTE LYMPHOCYTES 0.5 thou/uL (0.8-5.3); ABSOLUTE MONOCYTES 0.2 thou/uL (0.0-1.2); ABSOLUTE NEUTROPHILS 1.7 thou/uL (1.6-8.1); BASOPHILS 0.3 %; HEMATOCRIT 42.4 % (42.0-52.0); HEMOGLOBIN 14.3 gm/dL (14.0-18.0); LYMPHOCYTES 20.2 %; MCH 26.3 pg (26.0-34.0); MCHC 33.9 g/dL (28.0-37.0); MCV 77.6 fL (80.0-100.0); MONOCYTES 8.7 %; NUCLEATED RBCS 0 /100WBC; PLATELET COUNT* 142 thou/uL (150-400); POLYS 70.8 %; RBC 5.46 mil/uL (4.50-6.00); RDW-CV 15.6 % (10.5-14.5); WBC 2.4 thou/uL (4.0-11.0)
[2020-08-17 05:35] LABS: CALCIUM 7.8 mg/dL (8.5-10.1); POTASSIUM 3.3 mmol/L (3.5-5.1)
[2020-08-17 08:00] VITALS: BP 127/65
[2020-08-17 12:00] VITALS: BP 136/75
[2020-08-17 15:43] VITALS: BP 130/73
--- NOTE | 2020-08-17 18:55 | NUR ---
PT IS ALERT AND ORIENTED PT GOT EGD/COLONOSCOPY EARLIER WITHOUT ISSUES, NO FINDINGS NS AT 100ML/H CONTINUES PT DENIES ANY PAIN ATE LUNCH AND DINNER WITHOUT DIFFICULTY SOME FATIGUE WITH WALKING BUT ON ROOM AIR UP AD ROBBY NO CONCERNS M/S STATUS CALL LIGHT IN REACH
--- NOTE | 2020-08-17 19:21 | CON ---
[address] [address] CONSULTATION Name: WENDY TARANGO Room: [address] IN M.R.#: [id number] Admission: 08/16/20 Attend Phys: Nagi Jamil MD Discharge: Date of : 75 Report #: [id number] THIS REPORT FOR: cc: Bassem Verma John E. DO ~ Ruben Phillips DO DATE OF SERVICE: 08/16/2020 GASTROENTEROLOGY CONSULTATION CONSULTING PHYSICIAN: Ruben Phillips DO I have personally seen and examined the patient. REASON FOR CONSULTATION: GI bleed. HISTORY OF PRESENT ILLNESS: The patient is a 45-year-old male who presented to the hospital with a 3-day onset of diarrhea and weakness. He had recently been in contact with a COVID-19 positive person. He had a 3-day period of diarrhea with the appearance of some blood in it, followed by a 1-day appearance of dark diarrhea. He denies any hematochezia, vomiting. He does report to have nausea, abdominal cramping. He has a history of diabetes type 2, hypertension, asthma, morbid obesity, and epistaxis. PAST MEDICAL HISTORY: Reports that he had an EGD performed greater than 15 years ago at [facility] along with a colonoscopy and he reports no significant findings at that time with no followup. FAMILY HISTORY: Paternal family history is significant for 2 uncles with colon cancer, 1 grandfather with colon cancer and 1 grandmother with cervical cancer. Maternal family history of a grandmother with breast cancer. SOCIAL HISTORY: He denies alcohol use. He denies smoking. He denies drinking. ALLERGIES: He has no known allergies. IMAGING: CT revealed gallstones without evidence for acute cholecystitis or biliary obstruction, also revealed hepatic steatosis and revealed that his spleen measured 19 cm x 5.9 cm in thickness. LABORATORY DATA: Recent labs: White blood cell count of 7.8, hemoglobin of 9.0 with a normal value of 14, platelets of 98. INR 1.0. Sodium at 131, potassium at 3.0, elevated CRP at 23.2. Lactic was 1.3, BUN 20, creatinine 1.0, GFR 81. AST mildly elevated at 46, ALT elevated at 70, alkaline [place] 78. [place] [address] CONSULTATION Name: WENDY TARANGO Room: [address] IN [facility].#: [id number] Admission: 08/16/20 Attend Phys: Nagi Jamil MD Discharge: Date of : 75 Report #: [id number] ASSESSMENT: 1. Acute anemia. 2. Gastrointestinal bleed. 3. Diarrhea. 4. Hepatic steatosis on CT scan. 5. COVID positive. PLAN: 1. Colonoscopy tomorrow. 2. Bowel prep today with enema at 5:00 in the morning tomorrow if not clear. 3. Acute hepatitis panel. 4. Abdominal ultrasound today with findings to dictate potential need for EGD to be added onto colonoscopy for tomorrow. 5. Upper endoscopy if indicated to rule out for potential varices related to hepatic steatosis. Thank you for allowing us to participate in the consult with the patient today. Further recommendations will be made pending results of lab testing and abdominal ultrasound. Please feel free to contact us with any further needs. <ELECTRONICALLY SIGNED> By: Ruben Phillips DO 08/17/20 1921 1231 1356Ruben Phillips DO /nt
[2020-08-17 19:55] VITALS: BP 115/49
[2020-08-18 05:10] VITALS: BP 133/48
--- NOTE | 2020-08-18 05:11 | NUR ---
PATIENT HAS REMAINED ALERT AND ORIENTED X 4 THROUGHOUT THE SHIFT RESTING AT INTERVALS ON HOURLY ROUNDS. VITAL SIGNS STABLE ON ROOM AIR. UP INDEPENDENTLY IN THE ROOM. HOPES TO GO HOME TODAY OR TOMORROW. VITAL SIGNS STABLE. CONTINUE TO MONITOR.
[2020-08-18 05:14] LABS: ABSOLUTE LYMPHOCYTES 0.5 thou/uL (0.8-5.3); ABSOLUTE MONOCYTES 0.3 thou/uL (0.0-1.2); ABSOLUTE NEUTROPHILS 3.4 thou/uL (1.6-8.1); BASOPHILS 0.1 %; HEMATOCRIT 43.5 % (42.0-52.0); HEMOGLOBIN 14.3 gm/dL (14.0-18.0); LYMPHOCYTES 11.5 %; MCH 26.2 pg (26.0-34.0); MCHC 32.8 g/dL (28.0-37.0); MCV 79.9 fL (80.0-100.0); MONOCYTES 7.4 %; NUCLEATED RBCS 0 /100WBC; PLATELET COUNT* 118 thou/uL (150-400); RBC 5.45 mil/uL (4.50-6.00); RDW-CV 15.6 % (10.5-14.5); WBC 4.2 thou/uL (4.0-11.0)
[2020-08-18 05:37] LABS: CALCIUM 8.5 mg/dL (8.5-10.1); CREATININE 0.9 mg/dL (0.6-1.3); POTASSIUM 3.5 mmol/L (3.5-5.1)
[2020-08-18 08:12] VITALS: BP 108/49
--- NOTE | 2020-08-18 09:02 | NUR ---
ASSUMED CARE OF PT THIS AM AROUND 0715- M/S STAUS IN PLACE INDICATED- UPON ASSESSMENT PT NOTED TO BE RESTING IN BED- PT A&O X4, NOTED TO BE SOME WHAT WITHDRAWN- CONT OF B/B- UP AD-ROBBY IN ROOM, STEADY GAIT NOTED- LCTA/DIMINISHED IN BASES- PT DENIES ANY COUGH- VSS, O2 SAT 95% ON RA- ABD FIRM/OBESE/NON-TENDER, BS X4 QUADS- LAST BM REPORTED 08/17- IV NOTED TO LEFT FA INTACT, IVF INFUSSING PRESCRIBED; IV TO RIGHT FA INTACT AND SL- TRACE EDEMA NOTED TO BLE- BS MONITORED ORDERED, WITH SSI PRESCRIBED- PT DENIES ANY C/O PAIN/DISCOMFORT AT THIS TIME- CALL LIGHT AND PERSONAL BELONGINGS WITH IN REACH- ALL NEEDS MET AT THIS TIME-WCTM
[2020-08-18] MEDS ORDERED: VIBRAMYCIN 100100 M2 PO (09:17)
[2020-08-18 09:19] VITALS: BP 108/49
[2020-08-18] MEDS ORDERED: PREDNISONE 10 M10 MG PO (09:20)
[2020-08-18 11:50] VITALS: BP 108/49
[2020-08-18 13:26] VITALS: BP 108/49
== END 2020-08-18 13:25 | disposition home or self-care (01) | DRG 871 ==
LOC: M.ERS 21:04 → M.ORTHSURG 08-16 00:11 → M.TBA-ER 08-16 00:11 → M.ORTHSURG 08-16 01:37
PROVIDERS: Internal Medicine; Internal Medicine Gastroenterology; Nurse Practitioner Family; Personal Emergency Response Attendant; ADMIT Internal Medicine; ATTEND Internal Medicine
PROC: 0DJD8ZZ Inspection of Lower Intestinal Tract, Via Natural or Artificial Opening Endoscopic (ICD-10-PCS; principal; 2020-08-17)
PROC: 0DJ08ZZ Inspection of Upper Intestinal Tract, Via Natural or Artificial Opening Endoscopic (ICD-10-PCS; principal; 2020-08-17)
DX: A41.89 Other specified sepsis (principal); U07.1 COVID-19; K92.2 Gastrointestinal hemorrhage, unspecified; Z68.43 Body mass index [BMI] 50.0-59.9, adult; K64.4 Residual hemorrhoidal skin tags; A08.4 Viral intestinal infection, unspecified; J45.909 Unspecified asthma, uncomplicated; K21.9 Gastro-esophageal reflux disease without esophagitis; E11.9 Type 2 diabetes mellitus without complications; F41.9 Anxiety disorder, unspecified; I10 Essential (primary) hypertension; D64.9 Anemia, unspecified; E87.6 Hypokalemia; E66.01 Morbid (severe) obesity due to excess calories; K76.0 Fatty (change of) liver, not elsewhere classified; Z80.0 Family history of malignant neoplasm of digestive organs; Z80.3 Family history of malignant neoplasm of breast; Z80.8 Family history of malignant neoplasm of other organs or systems

== ENCOUNTER 2020-10-17 16:00 | Emergency (ER) | payer OTHER ==
[~2020-10-17] VITALS: Ht 190.5 cm; Wt 205.9 kg
[~2020-10-17 16:00] MED LIST changes: +PREDNISONE 10 M10 MG PO; +VIBRAMYCIN 100100 M2 PO
[2020-10-17 16:21] LABS: ABSOLUTE BASOPHILS 0.1 thou/uL (0.0-0.2); ABSOLUTE EOSINOPHILS 0.4 thou/uL (0.0-0.7); ABSOLUTE LYMPHOCYTES 1.8 thou/uL (0.8-5.3); ABSOLUTE MONOCYTES 0.5 thou/uL (0.0-1.2); ABSOLUTE NEUTROPHILS 6.4 thou/uL (1.6-8.1); BASOPHILS 1.4 %; EOSINOPHILS 4.4 %; HEMATOCRIT 41.8 % (42.0-52.0); LYMPHOCYTES 19.4 %; MCH 26.6 pg (26.0-34.0); MCHC 33.5 g/dL (28.0-37.0); MCV 79.4 fL (80.0-100.0); MONOCYTES 4.9 %; MPV 8.6 fl. (7.2-11.1); NUCLEATED RBCS 0 /100WBC; PLATELET COUNT* 205 thou/uL (150-400); POLYS 69.9 %; RBC 5.27 mil/uL (4.50-6.00); RDW-CV 15.9 % (10.5-14.5); WBC 9.2 thou/uL (4.0-11.0)
[2020-10-17 16:28] LABS: CALCIUM 9.3 mg/dL (8.5-10.1); CREATININE 0.8 mg/dL (0.6-1.3); POTASSIUM 3.5 mmol/L (3.5-5.1)
[2020-10-17 16:38] LABS: ALBUMIN 3.6 g/dL (3.4-5.0); DIRECT BILIRUBIN 0.1 mg/dL (<0.1-0.3); MAGNESIUM 1.8 mg/dL (1.8-2.4); TOTAL BILIRUBIN 0.5 mg/dL (<0.1-1.0); TOTAL PROTEIN 7.5 g/dL (6.4-8.2)
[2020-10-17 17:00] VITALS: BP 141/89
--- NOTE | 2020-10-18 14:15 | EKG ---
[place] [address] ELECTROCARDIOGRAM REPORT Name: WENDY TARANGO Room: [facility]#: [id number] Admission: 10/17/20 Attend Phys: Discharge: 10/17/20 Date of : 75 Date of Service: 10/17/20 1608 Report #: [id number] THIS REPORT FOR: //name// [facility] ED Test Date: 2020-10-17 Test Time: 16:08:10 Pat Name: WENDY TARANGO Department: Room: Gender: Stopboard Assembler: [facility] : 1975 Requested By: Neal Cobian Order Number: [id number] MD: Bassem Craig Measurements Intervals [place] Rate: 70 P: 53 DC: 161 QRS: 29 QRSD: 123 T: 42 QT: 416 QTc: 449 Interpretive Statements Sinus rhythm Nonspecific intraventricular conduction delay Compared to ECG 08/16/2020 00:45:[address]-T abnormalities have resolved Electronically Signed On 10-18-2020 14:15:35 LOG YARD DERRICK OPERATOR by Bassem Craig [email or web address] <ELECTRONICALLY SIGNED> By: Bassem Craig MD, [facility] 10/18/20 1415 1608 1608 Bassem Craig MD, [facility] /EPI
== END 2020-10-17 17:00 | disposition home or self-care (01) ==
LOC: M.ERS 16:00
PROVIDERS: Emergency Medicine
DX: I10 Essential (primary) hypertension (principal); F41.9 Anxiety disorder, unspecified; R07.89 Other chest pain; J45.909 Unspecified asthma, uncomplicated; K21.9 Gastro-esophageal reflux disease without esophagitis; E11.9 Type 2 diabetes mellitus without complications

== ENCOUNTER 2020-11-15 07:46 | Emergency (ER) | payer OTHER ==
[~2020-11-15] VITALS: Ht 190.5 cm; Wt 213.2 kg
[2020-11-15 08:07] LABS: URINE BILIRUBIN NEGATIVE (Negative); URINE BLOOD NEGATIVE (Negative); URINE CLARITY CLEAR; URINE COLOR YELLOW; URINE GLUCOSE-RANDOM 3+ (Negative); URINE KETONES NEGATIVE (Negative); URINE LEUKOCYTES-REFLEX NEGATIVE (Negative); URINE NITRITE-REFLEX NEGATIVE (Negative); URINE PROTEIN NEGATIVE (Negative); URINE SPECIFIC GRAVITY 1.015 (1.005-1.030); URINE UROBILINOGEN 0.2 E.U./dl (0.2-1.0)
[2020-11-15 08:14] LABS: AMP/METHAMP Negative (Negative); BARBITURATES Negative (Negative); BENZODIAZEPINES Negative (Negative); COCAINE Negative (Negative); METHADONE Negative (Negative); OPIATES Negative (Negative); PCP Negative (Negative); THC Negative (Negative)
[2020-11-15 08:16] LABS: ABSOLUTE BASOPHILS 0.1 thou/uL (0.0-0.2); ABSOLUTE EOSINOPHILS 0.2 thou/uL (0.0-0.7); ABSOLUTE LYMPHOCYTES 1.6 thou/uL (0.8-5.3); ABSOLUTE MONOCYTES 0.6 thou/uL (0.0-1.2); BASOPHILS 1.2 %; EOSINOPHILS 2.6 %; HEMATOCRIT 48.1 % (42.0-52.0); HEMOGLOBIN 16.1 gm/dL (14.0-18.0); MCH 26.7 pg (26.0-34.0); MCHC 33.4 g/dL (28.0-37.0); MCV 80.1 fL (80.0-100.0); MONOCYTES 6.8 %; MPV 8.7 fl. (7.2-11.1); NUCLEATED RBCS 0 /100WBC; PLATELET COUNT* 247 thou/uL (150-400); POLYS 70.4 %; RBC 6.01 mil/uL (4.50-6.00); RDW-CV 14.9 % (10.5-14.5); WBC 8.6 thou/uL (4.0-11.0)
[2020-11-15 08:25] LABS: CALCIUM 9.6 mg/dL (8.5-10.1); POTASSIUM 3.5 mmol/L (3.5-5.1)
[2020-11-15 08:30] LABS: ALBUMIN 3.9 g/dL (3.4-5.0); TOTAL BILIRUBIN 1.1 mg/dL (<0.1-1.0); TOTAL PROTEIN 8.2 g/dL (6.4-8.2)
[2020-11-15 08:31] LABS: SALICYLATE < 2.8 mg/dL (2.8-20.0)
[2020-11-15 08:32] LABS: ACETAMINOPHEN < 2 ug/mL (10-30); ALCOHOL < 10 mg/dL (<10)
[2020-11-15 15:29] VITALS: BP 143/86
== END 2020-11-15 15:29 ==
LOC: M.ERS 07:46
PROVIDERS: Family Medicine
DX: R45.851 Suicidal ideations (principal); Z20.822 Contact with and (suspected) exposure to COVID-19; I10 Essential (primary) hypertension; K21.9 Gastro-esophageal reflux disease without esophagitis; J45.909 Unspecified asthma, uncomplicated; E11.9 Type 2 diabetes mellitus without complications; Z79.899 Other long term (current) drug therapy

== ENCOUNTER 2021-01-19 22:02 | Emergency (ER) | payer OTHER ==
[~2021-01-19] VITALS: Ht 190.5 cm; Wt 207.3 kg
[2021-01-19] MEDS ORDERED: FLONASE 0.05%50 MCG NARES (22:58)
[2021-01-19] MEDS ORDERED: PROAIR HFA8.5 GM INH (22:58)
[2021-01-19] MEDS ORDERED: CLARITIN10 M3 PO (22:58)
[2021-01-19] MEDS ORDERED: PREDNISONE50 MG PO (22:58)
[2021-01-19 23:26] VITALS: BP 173/103
== END 2021-01-19 23:27 | disposition home or self-care (01) ==
LOC: M.ERS 22:02
DX: J45.901 Unspecified asthma with (acute) exacerbation (principal); I10 Essential (primary) hypertension; K21.9 Gastro-esophageal reflux disease without esophagitis; E11.9 Type 2 diabetes mellitus without complications; Z79.899 Other long term (current) drug therapy; Z98.890 Other specified postprocedural states

== ENCOUNTER 2021-02-11 23:10 | Emergency (ER) | payer OTHER ==
[~2021-02-11] VITALS: Ht 190.5 cm; Wt 207.8 kg
[~2021-02-11 23:10] MED LIST changes: +CLARITIN10 M3 PO; +FLONASE 0.05%50 MCG NARES; +PROAIR HFA8.5 GM INH
[2021-02-12 00:35] LABS: URINE BILIRUBIN NEGATIVE (Negative); URINE BLOOD 1+ (Negative); URINE CLARITY CLEAR; URINE COLOR YELLOW; URINE GLUCOSE-RANDOM 3+ (Negative); URINE KETONES NEGATIVE (Negative); URINE LEUKOCYTES-REFLEX NEGATIVE (Negative); URINE NITRITE-REFLEX NEGATIVE (Negative); URINE PROTEIN NEGATIVE (Negative); URINE SPECIFIC GRAVITY <= 1.005 (1.005-1.030); URINE UROBILINOGEN 0.2 E.U./dl (0.2-1.0)
[2021-02-12 00:45] LABS: BE 1.5 mmol/L (-2 to +3); PO2 VENOUS 56.8 mmHg (35.0-45.0)
[2021-02-12 00:48] LABS: ABSOLUTE BASOPHILS 0.1 thou/uL (0.0-0.2); ABSOLUTE EOSINOPHILS 0.2 thou/uL (0.0-0.7); ABSOLUTE LYMPHOCYTES 1.7 thou/uL (0.8-5.3); ABSOLUTE MONOCYTES 0.5 thou/uL (0.0-1.2); ABSOLUTE NEUTROPHILS 5.1 thou/uL (1.6-8.1); BASOPHILS 1.3 %; EOSINOPHILS 2.7 %; HEMATOCRIT 47.6 % (42.0-52.0); HEMOGLOBIN 16.6 gm/dL (14.0-18.0); LYMPHOCYTES 22.5 %; MCH 27.2 pg (26.0-34.0); MCHC 34.9 g/dL (28.0-37.0); MCV 77.8 fL (80.0-100.0); MONOCYTES 6.7 %; NUCLEATED RBCS 0 /100WBC; PLATELET COUNT* 189 thou/uL (150-400); POLYS 66.8 %; RBC 6.12 mil/uL (4.50-6.00); RDW-CV 14.9 % (10.5-14.5); WBC 7.7 thou/uL (4.0-11.0)
[2021-02-12 00:50] LABS: CALCIUM 9.6 mg/dL (8.5-10.1); CREATININE 0.9 mg/dL (0.6-1.3); POTASSIUM 3.4 mmol/L (3.5-5.1)
[2021-02-12 01:00] LABS: ALBUMIN 4.2 g/dL (3.4-5.0); TOTAL BILIRUBIN 0.8 mg/dL (<0.1-1.0); TOTAL PROTEIN 8.2 g/dL (6.4-8.2)
[2021-02-12 01:02] LABS: CASTS None Seen /LPF (None Seen); SQUAMOUS 0-3 Few /LPF (0-3); URINE RBC 0-2 Rare /HPF (0-2); URINE WBC-REFLEX 0-5 Rare /HPF (0-5)
[2021-02-12 01:03] LABS: BACTERIA-REFLEX 1-9 Few /HPF (None Seen); CRYSTALS None Seen /LPF (None Seen)
[2021-02-12 02:34] VITALS: BP 168/89
== END 2021-02-12 02:34 | disposition home or self-care (01) ==
LOC: M.ERS 23:10
PROVIDERS: Personal Emergency Response Attendant
DX: E11.65 Type 2 diabetes mellitus with hyperglycemia (principal); I10 Essential (primary) hypertension; J45.909 Unspecified asthma, uncomplicated; K21.9 Gastro-esophageal reflux disease without esophagitis

== ENCOUNTER 2021-03-06 22:21 | Emergency (ER) | payer OTHER ==
[~2021-03-06] VITALS: Ht 190.5 cm; Wt 206.4 kg
[2021-03-06] MEDS ORDERED: NORFLEX100 MG PO (23:07)
[2021-03-06] MEDS ORDERED: TORADOL 10 MG T10 MG PO (23:07)
[2021-03-06] MEDS ORDERED: ACETAMINOPHEN-1 EAC2 PO (23:07)
[2021-03-06 23:16] VITALS: BP 176/107
== END 2021-03-06 23:16 | disposition home or self-care (01) ==
LOC: M.ERS 22:21
DX: S39.012A Strain of muscle, fascia and tendon of lower back, initial encounter (principal); I10 Essential (primary) hypertension; J45.909 Unspecified asthma, uncomplicated; K21.9 Gastro-esophageal reflux disease without esophagitis; E11.9 Type 2 diabetes mellitus without complications; X50.9XXA Other and unspecified overexertion or strenuous movements or postures, initial encounter; Y93.89 Activity, other specified; Y92.89 Other specified places as the place of occurrence of the external cause; Y99.8 Other external cause status

== ENCOUNTER 2021-04-28 05:02 | Emergency (ER) | payer OTHER ==
[~2021-04-28] VITALS: Ht 190.5 cm; Wt 205.9 kg
[~2021-04-28 05:02] MED LIST changes: +ACETAMINOPHEN-1 EAC2 PO; +NORFLEX100 MG PO; +TORADOL 10 MG T10 MG PO
[2021-04-28] MEDS ORDERED: ADVAIR 250-501 EACH INH (05:17)
[2021-04-28] MEDS ORDERED: CIPROFLOXIN HC2.5 M1 OPHTHALMIC (05:45)
[2021-04-28 05:52] VITALS: BP 124/88
== END 2021-04-28 05:53 | disposition home or self-care (01) ==
LOC: M.ERS 05:02
DX: S05.01XA Injury of conjunctiva and corneal abrasion without foreign body, right eye, initial encounter (principal); I10 Essential (primary) hypertension; J45.909 Unspecified asthma, uncomplicated; K21.9 Gastro-esophageal reflux disease without esophagitis; E11.9 Type 2 diabetes mellitus without complications; F41.9 Anxiety disorder, unspecified; Z79.899 Other long term (current) drug therapy; Z88.8 Allergy status to other drugs, medicaments and biological substances; Z88.1 Allergy status to other antibiotic agents; X58.XXXA Exposure to other specified factors, initial encounter; Y93.89 Activity, other specified; Y92.89 Other specified places as the place of occurrence of the external cause; Y99.8 Other external cause status

== ENCOUNTER 2021-05-29 05:20 | Emergency (ER) | payer OTHER ==
[~2021-05-29] VITALS: Ht 190.5 cm; Wt 205.0 kg
[~2021-05-29 05:20] MED LIST changes: +ADVAIR 250-501 EACH INH; +CIPROFLOXIN HC2.5 M1 OPHTHALMIC
[2021-05-29 05:32] VITALS: BP 136/88
[2021-05-29] MEDS ORDERED: AUGMENTIN 500-1 EACH PO (06:22)
[2021-05-29] MEDS ORDERED: FLONASE 0.05%50 MCG NARES (06:22)
== END 2021-05-29 06:38 | disposition home or self-care (01) ==
LOC: M.ERS 05:20
DX: B34.9 Viral infection, unspecified (principal); Z20.822 Contact with and (suspected) exposure to COVID-19; I10 Essential (primary) hypertension; J45.909 Unspecified asthma, uncomplicated; K21.9 Gastro-esophageal reflux disease without esophagitis; F41.9 Anxiety disorder, unspecified; E11.9 Type 2 diabetes mellitus without complications; E66.01 Morbid (severe) obesity due to excess calories; Z79.899 Other long term (current) drug therapy; Z91.038 Other insect allergy status